=== PATIENT | female | born 1940 | race Caucasian/White ===

== ENCOUNTER 2019-08-08 09:33 | Emergency (ER) | payer OTHER, SELFPAY ==
[2019-08-08 09:40] VITALS: BP 126/71; PULSE 70; RESP 17; TEMP 35.9; O2SAT 100
--- NOTE | 2019-08-08 09:45 | DI.RAD.S_ITS ---
PROCEDURE: XR CHEST 1V INDICATIONS: chest pain TECHNIQUE: One view of the chest was acquired. COMPARISON: None. FINDINGS: Surgical changes and devices: None. Lungs and pleura: There appears to be scarring within the lung apices. Interstitial prominence within the right infrahilar region is present. No lobar consolidation, large effusion, or pneumothorax is appreciated. Mediastinum: Mediastinal contours appear normal. Heart size is mildly enlarged. Bones and chest wall: No suspicious bony lesions. Overlying soft tissues appear unremarkable. IMPRESSION: 1. Right infrahilar interstitial prominence may be within normal limits. However, this appearance may be seen in the setting of chronic interstitial changes or atypical pneumonia. Please correlate clinically. 2. Mild cardiomegaly. Dictated by: Eddie Guadarrama M.D. on 08/08/2019 at 9:01 Approved by: Eddie Guadarrama M.D. on 08/08/2019 at 9:03
[2019-08-08 10:00] VITALS: BP 106/61; PULSE 69; RESP 19; O2SAT 100
[2019-08-08 10:04] LABS: Prothrombin Time 11.2 SECONDS (10.1-12.7)
[2019-08-08 10:07] LABS: PTT Partial Thromboplastin Tim 28 SECONDS (26.4-36.2)
[2019-08-08 10:12] LABS: Add Manual Diff / Slide Review NO; Alanine Aminotransferase 16 IU/L (<35); Albumin 4.3 g/dL (3.5-5.0); Albumin Globulin Ratio 1.7 (1.0-2.8); Alkaline Phosphatase 53 U/L (38-126); Aspartate Aminotransferase 36 IU/L (14-36); BUN Creatinine Ratio 22.9 (6-22); Basophils Absolute Auto 0 /uL (0-100); Basophils Percent Auto 1.2 % (0-2); Bilirubin Total 0.9 mg/dL (0.2-1.3); Blood Urea Nitrogen 16 mg/dL (7-17); Calcium 9.4 mg/dL (8.4-10.2); Carbon Dioxide 27 mmol/L (22-32); Chloride 103 mmol/L (98-107); Creatine Kinase 53 U/L (30-135); Eosinophils Absolute Auto 100 /uL (0-450); Eosinophils Percent Auto 2.7 % (2-4); Estimated Glomerular Filt Rate > 60.0 mL/min (>60); Globulin 2.6 g/dL (1.7-4.1); Glucose 83 mg/dL (80-110); HEMOLYSIS 20 (0-50); Hematocrit 37.4 % (36-46); Lipase 155 U/L (23-300); Lymphocytes Absolute Auto 700 /uL (1100-4500); Lymphocytes Percent Auto 21.8 % (25-40); Magnesium 1.7 mg/dL (1.6-2.3); Mean Corpuscular HGB Conc 34.8 % (30-36); Mean Corpuscular Hemoglobin 32.9 PG (26-34); Mean Corpuscular Volume 94.6 fL (80-100); Monocytes Absolute Auto 600 /uL (0-900); Monocytes Percent Auto 19.3 % (3-14); Neutrophils Absolute Auto 1700 /uL (1500-7000); Platelet Count 114 X10^3/uL (150-400); Red Blood Cell Count 3.96 X10^6/uL (4.0-5.2); Red Cell Distribution Width 13.1 % (11.6-14.8); Sodium 138 mmol/L (137-145); Total Protein 6.9 g/dL (6.3-8.2); White Blood Cell Count 3.1 X10^3/uL (4.5-11.0)
--- NOTE | 2019-08-08 10:16 | ED_ITS ---
HPI - Arrhythmia/Palpitations General Chief Complaint: Arrhythmia/Palpitations Stated Complaint: irregular pulse Time Seen by Provider: 08/08/19 10:16 Source: patient Mode of arrival: Family Vehicle Limitations: no limitations History of Present Illness HPI narrative: Is a 78-year-old female who comes to the emergency department with complaint of palpitations patient states she knows in turn 5:00 a.m. this morning maybe about every 3rd beat. She states it lasted for several hours. She has had maybe 5 episodes in the past it in frequent intervals. Usually they are very short she does not think she has even informed her physician about them in the past. She states that she is not feeling it so much at this time. She denies any symptoms. No lightheadedness, no passing-out, no chest pain or shortness of breath, no nausea, no vomiting no GI or urinary symptoms. She denies any swelling in her extremities. She takes propranolol for an essential tremor. She states she had a peritoneal debulking surgery for primary peritoneal cancer remotely. She drinks 1 alcoholic drink for 5 times weekly. Denies tobacco or illicit. Her primary care is Dr. Cisneros in [place]. Related Data Home Medications Medication Instructions Recorded Confirmed Calcium Tablet 1 tab PO DAILY 08/08/19 08/08/19 Vitamin B Tablet 1 tab PO DAILY 08/08/19 08/08/19 Vitamin C 1 tab PO DAILY 08/08/19 08/08/19 Vitamin D3 1 cap PO DAILY 08/08/19 08/08/19 propranolol 10 mg PO TID 08/08/19 08/08/19 Allergies Allergy/AdvReac Type Severity Reaction Status Date / Time Penicillins Allergy Intermediate Rash Verified 08/08/19 10:58 Review of Systems Review of Systems ROS Unobtainable: All systems reviewed & are unremarkable except as noted in HPI and below Patient History Medical History (Updated 08/08/19 @ 10:28 by Julia Elizondo DO) Essential tremor (Acute) Primary cancer of peritoneum (Acute) Social History Smoking Status: Never smoker Smoking Status: Never smoker alcohol intake frequency: a few times a week Alcohol type: wine Substance Use Type: does not use Exam Narrative Exam Narrative: GENERAL: Alert and oriented x three, thin, well-appearing female in no acute distress. HEENT: Head normocephalic, atraumatic, EOMI, pupils reactive, face symmetric, moist mucous membranes NECK: Supple, full range of motion CARDIOVASCULAR: Regular rate and rhythm without murmurs, rubs or gallops. No edema bilateral lower extremities. no JVD. RESPIRATORY: Breath sounds equal bilaterally, no wheezes rales or rhonchi. ABDOMEN: Soft, nontender. Normoactive bowel sounds all 4 quadrants. No guarding or rebound, rigidity, no mass : No CVA tenderness EXTREMITIES: Normal range of motion, no edema. Neurovascularly intact NEUROLOGICAL: Cranial nerves II through XII grossly intact. Moving all extremities SKIN: Warm, dry, no petechiae, no rashes or lesions. Initial Vital Signs Initial Vital Signs: Vital Signs Temperature 96.6 F L 08/08/19 09:40 Pulse Rate 70 08/08/19 09:40 Respiratory Rate 17 08/08/19 09:40 Blood Pressure 126/71 08/08/19 09:40 Pulse Oximetry 100 08/08/19 09:40 Course Orders Ordered: ED Orders 08/08/19 09:45 XR chest 1V Stat EKG-12 Lead Stat 08/08/19 09:50 Complete Blood Count AUTO DIFF Stat Comprehensive Metabolic Panel Stat Lipase Stat Magnesium Stat Partial Thromboplastin Time Stat Prothrombin Time INR Stat TSH w/ Reflex to FT4 Stat Troponin & CK Cardiac Panel Stat Vital Signs Vital signs: Vital Signs - 8 hr 08/08/19 09:40 08/08/19 10:00 08/08/19 10:30 Temperature 96.6 F L Pulse Rate 70 69 64 Respiratory Rate 17 19 17 Blood Pressure 126/71 Blood Pressure [Right Arm] 106/61 110/62 Pulse Oximetry 100 100 98 MDM - Arrhythmia/Palpitations Lab Data Attestation: I reviewed the patient's lab results. Result diagrams: 08/08/19 09:50 08/08/19 09:50 Labs: Lab Results 08/08/19 08/08/19 08/08/19 Range/Units 09:50 09:50 09:50 WBC 3.1 L (4.5-11.0) X10^3/uL RBC 3.96 L (4.0-5.2) X10^6/uL Hgb 13.0 (12.0-16.0) g/dL Hct 37.4 (36-46) % MCV 94.6 (80-100) fL MCH 32.9 (26-34) PG MCHC 34.8 (30-36) % RDW 13.1 (11.6-14.8) % Plt Count 114 L (150-400) X10^3/uL Neut % (Auto) 55.0 (50-75) % Lymph % (Auto) 21.8 L (25-40) % Harding % (Auto) 19.3 H (3-14) % Eos % (Auto) 2.7 (2-4) % Baso % (Auto) 1.2 (0-2) % Neut # (Auto) 1700 (5378-3821) /uL Lymph # (Auto) 700 L (9251-6510) /uL Harding # (Auto) 600 (0-900) /uL Eos # (Auto) 100 (0-450) /uL Baso # (Auto) 0 (0-100) /uL PT 11.2 (10.1-12.7) SECONDS INR 1.0 (0.9-1.3) APTT 28 (26.4-36.2) SECONDS Sodium 138 (137-145) mmol/L Potassium 4.0 (3.4-5.1) mmol/L Chloride 103 (98-107) mmol/L Carbon Dioxide 27 (22-32) mmol/L BUN 16 (7-17) mg/dL Creatinine 0.70 (0.52-1.04) mg/dL Estimated GFR > 60.0 (>60) mL/min BUN/Creatinine Ratio 22.9 H (6-22) Glucose 83 (80-110) mg/dL Calcium 9.4 (8.4-10.2) mg/dL Magnesium 1.7 (1.6-2.3) mg/dL Total Bilirubin 0.9 (0.2-1.3) mg/dL AST 36 (14-36) IU/L ALT 16 (<35) IU/L Alkaline Phosphatase 53 (38-126) U/L Total Creatine Kinase 53 (30-135) U/L CK-MB (CK-2) TNP CK-MB (CK-2) Rel Index TNP Troponin I < 0.012 (0.01-0.034) ng/mL Total Protein 6.9 (6.3-8.2) g/dL Albumin 4.3 (3.5-5.0) g/dL Globulin 2.6 (1.7-4.1) g/dL Albumin/Globulin Ratio 1.7 (1.0-2.8) Lipase 155 (23-300) U/L TSH (0.47-4.68) uIU/mL 08/08/19 Range/Units 09:50 WBC (4.5-11.0) X10^3/uL RBC (4.0-5.2) X10^6/uL Hgb (12.0-16.0) g/dL Hct (36-46) % MCV (80-100) fL MCH (26-34) PG MCHC (30-36) % RDW (11.6-14.8) % Plt Count (150-400) X10^3/uL Neut % (Auto) (50-75) % Lymph % (Auto) (25-40) % Harding % (Auto) (3-14) % Eos % (Auto) (2-4) % Baso % (Auto) (0-2) % Neut # (Auto) (3712-4144) /uL Lymph # (Auto) (1320-6351) /uL Harding # (Auto) (0-900) /uL Eos # (Auto) (0-450) /uL Baso # (Auto) (0-100) /uL PT (10.1-12.7) SECONDS INR (0.9-1.3) APTT (26.4-36.2) SECONDS Sodium (137-145) mmol/L Potassium (3.4-5.1) mmol/L Chloride (98-107) mmol/L Carbon Dioxide (22-32) mmol/L BUN (7-17) mg/dL Creatinine (0.52-1.04) mg/dL Estimated GFR (>60) mL/min BUN/Creatinine Ratio (6-22) Glucose (80-110) mg/dL Calcium (8.4-10.2) mg/dL Magnesium (1.6-2.3) mg/dL Total Bilirubin (0.2-1.3) mg/dL AST (14-36) IU/L ALT (<35) IU/L Alkaline Phosphatase (38-126) U/L Total Creatine Kinase (30-135) U/L CK-MB (CK-2) CK-MB (CK-2) Rel Index Troponin I (0.01-0.034) ng/mL Total Protein (6.3-8.2) g/dL Albumin (3.5-5.0) g/dL Globulin (1.7-4.1) g/dL Albumin/Globulin Ratio (1.0-2.8) Lipase (23-300) U/L TSH 2.29 (0.47-4.68) uIU/mL Imaging Data Chest x-ray: Attestation: I personally reviewed and interpreted this imaging study as follows: Radiologist's impression: right infrahilar prominence, cardiomegaly. ECG Data Attestation: I personally reviewed and interpreted this ECG as follows: Prior ECG tracings: not available for review Interpretation: Sinus rhythm rate of 61, [place] 139, qrs of 81, qtc 383. No ST elevation or depression. No prior available for comparison. MDM Narrative Medical decision making narrative: Patient comes in with palpitation like sensa tion. She has a normal sinus rhythm department normal sinus EKG although she is not feeling these as much any more. Patient is typically on propranolol and has been taking this regularly. Discussed lab work does not show any acute findings that would explain her symptoms. She does have a low white count and platelets and she states she has been told this in the past and it is monitored. Plan for patient to follow up with primary care possibly from Holter monitor her ZIO patch and return if any new or concerning symptoms arrive. Discharge Plan Departure Patient Disposition: Home Clinical Impression: Palpitations Discharge Date/Time: 08/08/19 11:16 Instructions: DI for Palpitations Activity Restrictions/Additional Instructions: Follow-up with your primary care physician this week for recheck discussion about whether a Holter monitor or ZIO patch should be appropriate. You may continue home medications as prescribed. Your labs today do show a white count that is slightly low as well as platelets that are slightly low, discussed with her physician as they may wish to monitor these if this is a new finding. Return to the emergency department for recurrent or worsening symptoms, passing out, new chest pain, shortness of breath, persistent vomiting, no abdominal pain, black or bloody stools new swelling in her extremities or other new or concerning symptoms. Prescriptions: No Action propranolol 10 mg Tablet 10 mg PO TID RF: 0 Calcium Tablet 1 tab PO DAILY RF: 0 Vitamin B Tablet 1 tab PO DAILY RF: 0 Vitamin C 1 tab PO DAILY RF: 0 Vitamin D3 1 cap PO DAILY RF: 0
[2019-08-08 10:23] LABS: Troponin I < 0.012 ng/mL (0.01-0.034)
[2019-08-08 10:30] VITALS: BP 110/62; PULSE 64; RESP 17; O2SAT 98
[2019-08-08 10:49] LABS: TSH w/ Reflex to FT4 2.29 uIU/mL (0.47-4.68)
[2019-08-08 11:00] VITALS: BP 110/58; PULSE 62; RESP 17; O2SAT 98
== END 2019-08-08 11:16 | disposition home or self-care (01) ==
PROVIDERS: Emergency Provider Emergency Medicine
DX: R00.2 Palpitations (principal); R79.89 Other specified abnormal findings of blood chemistry; R07.9 Chest pain, unspecified
CPT/HCPCS: 36415; 71045; 80053; 82550; 83690; 83735; 84443; 84484; 85025; 85610; 85730; 93005; 93010; 99283; 99285